=== PATIENT | female | born 1990 | race Caucasian/White ===

== ENCOUNTER 2023-05-25 13:56 | Emergency (ER) | payer SELFPAY ==
[2023-05-25 14:19] VITALS: BP 129/72; BMI 23.6
[2023-05-25 15:40] VITALS: BP 123/74
[2023-05-25] MEDS: KLONOPIN PO (16:38)
[2023-05-25] MEDS: MOTRIN 400 MG PO (16:41)
[2023-05-25 17:39] LABS: Urine Albumin Trace (Neg - Trace); Urine Bilirubin Negative (Negative); Urine Character Clear (Clear); Urine Color Yellow; Urine Glucose Negative (Negative); Urine Ketone 2+ (Negative); Urine Leukocyte Negative (Negative); Urine Nitrite Negative (Negative); Urine Occult Blood Negative (Negative); Urine Specific Gravity 1.015 (<1.030); Urine Urobilinogen Negative (Neg - 1+)
[2023-05-25] MEDS: ZOFRAN ODT (ORALLY DISINTEGRATING) 4 MG PO (17:40)
[2023-05-25 17:45] LABS: HCG, Urine Qualitative Screen Negative
[2023-05-25] MEDS: KLONOPIN 0.5 MG PO (18:49)
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
[2023-05-25 19:07] VITALS: BP 124/73
[2023-05-25 19:35] LABS: Amphetamines Negative (Negative); Barbiturates Negative (Negative); Benzodiazepines Negative (Negative); Buprenorphine Negative (Negative); Cocaine Negative (Negative); Marijuana Negative (Negative); Methadone Negative (Negative); Methamphetamines Negative (Negative); Opiates Negative (Negative); Phencyclidine Negative (Negative); Tricyclic Antidepressants Negative (Negative)
== END 2023-05-25 19:44 | disposition home or self-care (01) ==
LOC: EMR 13:56
PROVIDERS: EMERGENCY PHYSICIAN Emergency Medicine
DX: T76.21XA Adult sexual abuse, suspected, initial encounter (principal); R03.0 Elevated blood-pressure reading, without diagnosis of hypertension
CPT/HCPCS: 99285; 80306; 81003; 81025